=== PATIENT | male | born 1980 | race Caucasian/White ===

== ENCOUNTER 2022-09-03 09:24 | Outpatient (CLI) | payer BC, MEDICAID, SELFPAY ==
--- NOTE | ~2022-09-03 | MR_ITS ---
MRI of the brain Clinical History: Chronic pain, night sweats Technique: Axial and sagittal T1-weighted images were acquired. These were followed by axial T2-weigh crystal, diffusion weighted, gradient, and FLAIR images. Following intravenous administration of 20 cc Mu ltiHance gadolinium, T1-weighted fat-sat imaging was performed in the axial, coronal, and sagittal pl anes. Findings: No significant signal abnormality seen in the brain parenchyma. No acute infarct, intracran ial hemorrhage, or mass lesion. Ventricles and subarachnoid spaces are unremarkable. Orbits are unremarkable. There is right maxillar y sinus disease. Probable mild bilateral ethmoid sinus disease. Remaining paranasal sinuses and masto id air cells are clear. Major intracranial flow voids are intact. Sagittal midline structures are intact. No abnormal postcontrast enhancement identified. IMPRESSION: Mild sinus disease, otherwise unremarkable exam. Reviewed, dictated and finalized at [facility]. [employer]
== END 2022-09-03 09:25 | disposition home or self-care (01) ==
DX: R61 Generalized hyperhidrosis (principal); Z85.71 Personal history of Hodgkin lymphoma; C79.51 Secondary malignant neoplasm of bone; I89.0 Lymphedema, not elsewhere classified; M25.511 Pain in right shoulder; R51.9 Headache, unspecified; J32.9 Chronic sinusitis, unspecified
CPT/HCPCS: 70553; A9577